=== PATIENT | female | born 1980 | race African-American/Black ===

== ENCOUNTER 2017-08-02 21:22 | Observation (INO) | payer OTHER ==
[~2017-08-02] VITALS: Ht 167.6 cm; Wt 118.5 kg
[2017-08-02 22:04] LABS: HEMATOCRIT 35.3 % (36.0-46.0); HEMOGLOBIN 12.1 G/DL (11.9-15.5); MCHC 34.3 G/DL (30.0-36.0); MCV 87.6 FL (83-99); PLATELET COUNT 348 K/uL (156-360); RBC DIS.WIDTH-CV 13.6 % (11.8-14.6); RBC DIS.WIDTH-SD 43.6 % (39-53); RED BLOOD COUNT 4.03 M/uL (3.80-5.20)
[2017-08-02 22:18] LABS: CHLORIDE 106 mEq/L (99-109); POTASSIUM 3.7 mEq/L (3.7-5.4); SODIUM 139 mEq/L (136-147)
[2017-08-02 22:20] LABS: GLUCOSE 104 mg/dL (70-99)
[2017-08-02 22:24] LABS: CREATININE 0.8 mg/dL (0.6-1.3)
[2017-08-02 22:25] LABS: UREA NITROGEN (BUN) 12 mg/dL (9-23)
[2017-08-02 22:26] LABS: TROP-I INTERPRETATION NEGATIVE; TROPONIN-I < 0.01 ng/mL (0.0-0.30)
[2017-08-02 22:29] LABS: GFR ESTIMATE (CALCULATED) > 59 mL/min/
[2017-08-02 23:09] LABS: TOTAL PROTEIN 7.8 g/dL (6.4-8.3)
[2017-08-02 23:11] LABS: TOTAL BILIRUBIN 0.5 mg/dL (0.0-1.0)
[2017-08-02 23:12] LABS: ALKALINE PHOSPHATASE 117 IU/L (3-129)
[2017-08-02 23:15] LABS: ALT (GPT) 17 IU/L (3-49); AST (GOT) 19 IU/L (2-34); DIRECT BILIRUBIN 0.2 mg/dL (0.0-0.3)
[2017-08-02 23:16] LABS: LIPASE 27 U/L (1.0-51.0)
[2017-08-03] MEDS ORDERED: VITAMIN D31000 UNI2 PO (00:12)
[2017-08-03] MEDS ORDERED: ALEVE220 MG PO (00:13)
[2017-08-03 02:10] LABS: HDL CHOLESTEROL 51 MG/DL (Desirable>=50); LDL CHOLESTEROL 117 mg/dL (Desirable<100); NON-HDL CHOLESTEROL 129 mg/dL (Desirable<160); TOTAL CHOLESTEROL 180 mg/dL (Desirable<200); TRIGLYCERIDES 60 MG/DL (Normal: <150)
[2017-08-03 02:19] VITALS: BP 124/60
[2017-08-03 05:42] LABS: TROP-I INTERPRETATION NEGATIVE; TROPONIN-I < 0.01 ng/mL (0.0-0.30)
[2017-08-03 07:32] VITALS: BP 105/52
[2017-08-03 08:19] LABS: HEMOGLOBIN A1c (GLYCOHEMOGLOB) 5.6 % (Below 5.7)
[2017-08-03 13:01] LABS: TROP-I INTERPRETATION NEGATIVE; TROPONIN-I < 0.01 ng/mL (0.0-0.30)
[2017-08-03 15:32] VITALS: BP 117/63
[2017-08-03] MEDS ORDERED: ASPIR-LOW81 MG PO (17:54)
[2017-08-03] MEDS ORDERED: PRAVASTATIN SOD80 MG PO (17:54)
[2017-08-03 19:15] VITALS: BP 128/68
[2017-08-03 23:55] VITALS: BP 131/64
[2017-08-04 04:17] VITALS: BP 108/61
[2017-08-04 07:50] VITALS: BP 115/59
== END 2017-08-04 11:30 | disposition home or self-care (01) ==
LOC: EME 21:22 → EDOF 08-03 00:03 → 4SOUTH 08-03 00:03 → EDOF 08-03 00:03 → ENRESERV 08-03 00:06 → 4SOUTH 08-03 01:32
PROVIDERS: Physician Assistant Medical
DX: R20.2 Paresthesia of skin (principal); R07.89 Other chest pain; R94.31 Abnormal electrocardiogram [ECG] [EKG]; E87.1 Hypo-osmolality and hyponatremia; E66.01 Morbid (severe) obesity due to excess calories; Z68.41 Body mass index [BMI] 40.0-44.9, adult; M41.9 Scoliosis, unspecified; Z86.19 Personal history of other infectious and parasitic diseases; Z98.1 Arthrodesis status; Z82.3 Family history of stroke; Z83.3 Family history of diabetes mellitus; Z82.49 Family history of ischemic heart disease and other diseases of the circulatory system; Z80.8 Family history of malignant neoplasm of other organs or systems; Z88.0 Allergy status to penicillin
CPT/HCPCS: 70450; 70496; 70498; 70551; 71046; 80048; 80061; 80076; 83036; 83690; 84484; 85027; 93005; 93306; 99281; 99285; G0378; J7030